=== PATIENT | male | born 1965 | race Caucasian/White ===

== ENCOUNTER → 2020-06-25 | Day surgery (SDC) | payer OTHER ==
--- NOTE | 2020-06-27 09:31 | PATH ---
Cytology Non-Gynecological Report Patient Name: MONIKA AVITIA [facility]. Rec. #: [id number] /Age/Gender: 1965 (Age: 55) / M Account: [id number] Location: RADIOLOGY INTER Taken: 06/25/2020 Received: 06/25/2020 Reported: 06/27/2020 Physicians: Angelique Jones M.D. Specimen(s) Received LEFT THYROID FNA Clinical History Left thyroid nodule1.93 x 1.34 x 1.56 cm Final Diagnosis THYROID, LEFT, FINE NEEDLE ASPIRATION: SATISFACTORY FOR EVALUATION [place] CLASS II: BENIGN SMALL FOLLICULAR CELLS AND COLLOID PRESENT, CONSISTENT WITH A BENIGN FOLLICULAR NODULE. Electronically Signed Booker Bower M.D. Gross Description Received are eight direct smears, four of which are air-dried and Diff-Quik stained, and four of which are alcohol fixed and Pap stained. Also received is 20 ml of bloody formalin from which one cellblock is prepared.
== END | disposition home or self-care (01) ==
LOC: JRADIR 09:56
PROVIDERS: ATTEND Family Medicine
PROC: 0G9G3ZX Drainage of Left Thyroid Gland Lobe, Percutaneous Approach, Diagnostic (ICD-10-PCS; principal; 2020-06-25)
DX: E04.1 Nontoxic single thyroid nodule (principal)
CPT/HCPCS: 76942; 88173; 88305-TC